=== PATIENT | male | born 1955 | race Caucasian/White ===

== ENCOUNTER 2018-09-04 12:53 | Emergency (ER) | payer SELFPAY ==
[2018-09-04] MEDS ORDERED: Dexamethasone 4 mg/ml Vial ONE ×2 (13:26→16:51)
[2018-09-04 13:53] LABS: #Lymphocytes 0.9 thou/uL (1.20-3.40); #Monocytes 1.2 thou/uL (0.11-0.59); #Neutrophils 10.3 thou/uL (1.40-6.50); %Basophils 0.1 % (0.0-1.0); %Eosinophils 0.1 % (0.0-10.0); %Lymphocytes 7.3 % (21.0-51.0); %Monocytes 9.5 % (0.0-10.0); Hemoglobin 16.7 g/dL (14.0-18.0); Mean Corpuscular HGB CONC 31.9 g/dL (32.0-36.0); Mean Corpuscular Hemoglobin 30.3 pg (27.0-31.0); Mean Corpuscular Volume 94.8 fL (78.0-98.0); Mean Platelet Volume 8.2 fL (7.4-10.4); Platelet Count 244 thou/uL (130-400); RBC Distribution Width 11.5 % (11.5-14.5); Red Blood Cell (RBC) Count 5.51 mill/uL (4.70-6.10); White Blood Cell (WBC) Count 12.4 thou/uL (4.8-10.8)
[2018-09-04] MEDS ORDERED: ISOVUE-370 76%-LOCM 1 ML ONE (14:01)
[2018-09-04 14:09] LABS: ALT (SGPT) 28 U/L (8-55); AST (SGOT) 36 U/L (5-34); Albumin 3.6 g/dL (3.4-4.8); Alkaline Phosphatase 48 U/L (40-150); Anion Gap 18 mmol/L (10-20); BUN (Urea Nitrogen) 28 mg/dL (8.4-25.7); Bilirubin, Total 0.7 mg/dL (0.2-1.2); Calc. Creatinine Clearance 0 mL/min (70-130); Calcium 10.6 mg/dL (7.8-10.44); Carbon Dioxide 24 mmol/L (23-31); Chloride 99 mmol/L (98-107); Estimated GFR-MDRD 73; Globulin 4.1 g/dL (2.4-3.5); Glucose 165 mg/dL (80-115); Potassium 3.9 mmol/L (3.5-5.1); Protein, Total 7.7 g/dL (5.8-8.1); Sodium 137 mmol/L (136-145)
--- NOTE | 2018-09-04 15:12 | CT ---
CT NECK WITH CONTRAST: Multiple axial tomograms were obtained through the neck with IV enhancement. INDICATION: Difficulty breathing. The patient tells the technologist that he has noticed a right neck mass x 1 m onth. FINDINGS: Extensive bilateral cervical adenopathy more prominent on the right. 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 There is abnorm al density and asymmetric in the right parapharyngeal region in the inferior nasopharynx extending to the oropharynx where there is an abnormal mass density in the region of the right palatine tonsil me asuring up to 4 cm AP dimension in the axial plane. This is producing mass effect on the airway. Th ere is abnormal edema extending inferiorly from this right oropharynx mass into the right hypopharynx . There is asymmetry of the right vallecula with edema. There is edema in the right carotid space. Associated with this right parapharyngeal mass is extensive adenopathy on the right. There are heter ogeneously enlarged lymph nodes at level II on the right measuring 3.5-4 cm. There are right submand ibular nodes, many of which are necrotic, measuring 2-3 cm. On the left, there is a necrotic lymph node level II measuring 2.5 cm. The larynx shows irregularity of both true vocal cords of uncertain significance. No enhancing mass at the larynx. The tracheal below the larynx is unremarkable. Both parotid glands are unremarkable. The right submandibular gland is displaced anteriorly by the parapharyngeal mass and adenopathy on th e right. There is a small low-density lesion measuring 1 cm with the base of the tongue inferiorly in the ge on of genu hyoid muscle possibly representing a necrotic node or cyst. Degenerative changes in the c ervical spine. Paranasal sinuses and mastoids are well aerated and clear. Lung apices appear clear. Thyroid is unremarkable. 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 Site of origin of this neoplasm cannot be definitely ascertained, although the epicenter may be in the right oropharynx at the level of the right palatine tonsil. A heterogeneously enhancing mass at this location measures 4 cm. There are numerous bilateral pathologic lymph nodes, many of which are necrotic. These are more numerous on the right as described above. POS: [facility]
== END 2018-09-04 17:34 | disposition home or self-care (01) ==
LOC: ERS 12:53
DX: R22.1 Localized swelling, mass and lump, neck (principal); Z87.891 Personal history of nicotine dependence
CPT/HCPCS: 70491; 80053; 85025; 96361; 96374; 96376; J1100